=== PATIENT | female | born 1950 | race Caucasian/White ===

== ENCOUNTER → 2019-12-18 | Outpatient (CLI) | payer MEDICARE | LOC: LABNPT 08:52 | PROVIDERS: ATTEND Physician Assistant | DX: Z20.828 Contact with and (suspected) exposure to other viral communicable diseases (principal) | CPT/HCPCS: 87635 ==

== ENCOUNTER → 2020-01-14 | Outpatient (CLI) | payer MEDICARE | LOC: LABNPT 08:24 | DX: Z20.828 Contact with and (suspected) exposure to other viral communicable diseases (principal) | CPT/HCPCS: 87635 ==

== ENCOUNTER → 2020-02-12 | Outpatient (CLI) | payer MEDICARE | LOC: LABNPT 05:20 | PROVIDERS: ATTEND Physician Assistant | DX: U07.1 COVID-19 (principal) | CPT/HCPCS: 87635 ==

== ENCOUNTER → 2020-03-11 | Outpatient (CLI) | payer MEDICARE | LOC: LABNPT 08:59 | PROVIDERS: ATTEND Internal Medicine Hospice and Palliative Medicine | DX: Z20.822 Contact with and (suspected) exposure to COVID-19 (principal) | CPT/HCPCS: 87635 ==

== ENCOUNTER 2022-01-03 13:14 | Inpatient (IN) | payer MEDICARE ==
[~2022-01-03] VITALS: Ht 165.1 cm; Wt 55.0 kg
--- NOTE | 2022-01-03 13:25 | ED Cardiac General ---
History of Present Illness General Chief Complaint: Chest Pain Stated Complaint: SOA Source: patient, EMS Exam Limitations: no limitations History of Present Illness Date Seen by Provider: Jan 03, 2022 Time Seen by Provider: 13:18 Initial Comments 71-year-old female with past medical history of COPD on baseline 2 and half liters oxygen as well as metastatic kidney cancer with mets to the lungs and bones coming in via EMS due to chest pain and shortness of breath. She has been short of breath for the several weeks and continues to get worse. Started having chest tightness last night worsening today. Has had a productive cough. Denies any fever that she knows of, nausea, vomiting, diarrhea, focal weakness or numbness, rash, or any other concerns. Allergies and Home Medications Allergies Coded Allergies: No Known Drug Allergies (Unverified , 01/03/22) Patient Home Medication List Home Medication List Reviewed: Yes Review of Systems Review of Systems Constitutional: No fever EENTM: No Blurred Vision Respiratory: Cough, Shortness of Air Cardiovascular: Chest Pain Gastrointestinal: Denies Abdominal Pain Genitourinary: No Symptoms Reported Musculoskeletal: no symptoms reported Skin: no symptoms reported Psychiatric/Neurological: No Symptoms Reported Endocrine: No Symptoms Reported Hematologic/Lymphatic: No Symptoms Reported All Other Systems Reviewed Negative Unless Noted: Yes Past Utrxscb-Rligar-Gmdzxu Hx Patient Social History Tobacco Use?: No Smoking Status: Former Smoker Past Medical History Surgeries: Yes (nephrectomy) Physical Exam Vital Signs Vital Signs - First Documented 01/03/22 13:16 Temp 36.1 Pulse 101 B/P (MAP) 156/97 (116) Pulse Ox 99 O2 Delivery Nasal Cannula O2 Flow Rate 2.00 Capillary Refill : Height, Weight, BMI Height: '" Weight: lbs. oz. kg; BMI Method: General Appearance: Anxious, Chronically ill HEENT: PERRL/EOMI, Normal ENT Inspection, Pharynx Normal Neck: Full Range of Motion, Normal Inspection, Non Tender, Supple Respiratory: Chest Non Tender, Crackles, Wheezing Cardiovascular: Normal Peripheral Pulses, Tachycardia Gastrointestinal: Normal Bowel Sounds, Non Tender, Soft; No Distended, No Guarding Extremity: Normal Capillary Refill, Normal Inspection, Normal Range of Motion, Non Tender, No Calf Tenderness, Other (2+ lower extremity edema) Neurologic/Psychiatric: Alert, Oriented x3, No Motor/Sensory Deficits, Normal Mood/Affect Skin: Normal Color, Warm/Dry Lymphatic: No Adenopathy Progress/Results/Core Measures Results/Orders Lab Results Laboratory Tests Test 01/03/22 13:29 01/03/22 14:20 Range/Units White Blood Count 7.3 4.3-11.0 10^3/uL Red Blood Count 2.82 L 3.80-5.11 10^6/uL Hemoglobin 8.2 L 11.5-16.0 g/dL Hematocrit 25 L 35-52 % Mean Corpuscular Volume 89 80-99 fL Mean Corpuscular Hemoglobin 29 25-34 pg Mean Corpuscular Hemoglobin Concent 33 32-36 g/dL Red Cell Distribution Width 14.0 10.0-14.5 % Platelet Count 487 H 130-400 10^3/uL Mean Platelet Volume 8.4 L 9.0-12.2 fL Immature Granulocyte % (Auto) 1 % Neutrophils (%) (Auto) 76 H 42-75 % Lymphocytes (%) (Auto) 9 L 12-44 % Monocytes (%) (Auto) 13 H 0-12 % Eosinophils (%) (Auto) 1 0-10 % Basophils (%) (Auto) 0 0-10 % Neutrophils # (Auto) 5.5 1.8-7.8 10^3/uL Lymphocytes # (Auto) 0.7 L 1.0-4.0 10^3/uL Monocytes # (Auto) 1.0 0.0-1.0 10^3/uL Eosinophils # (Auto) 0.1 0.0-0.3 10^3/uL Basophils # (Auto) 0.0 0.0-0.1 10^3/uL Immature Granulocyte # (Auto) 0.1 0.0-0.1 10^3/uL Prothrombin Time 12.7 12.2-14.7 SEC INR Comment 0.9 0.8-1.4 Activated Partial Thromboplast Time 31 24-35 SEC Sodium Level 120 *L 135-145 MMOL/L Potassium Level 5.4 H 3.6-5.0 MMOL/L Chloride Level 88 L 98-107 MMOL/L Carbon Dioxide Level 24 21-32 MMOL/L Anion Gap 8 5-14 MMOL/L Blood Urea Nitrogen 17 7-18 MG/DL Creatinine 0.95 0.60-1.30 MG/DL Estimat Glomerular Filtration Rate 64 BUN/Creatinine Ratio 18 Glucose Level 99 70-105 MG/DL Calcium Level 8.8 8.5-10.1 MG/DL Corrected Calcium 9.0 8.5-10.1 MG/DL Magnesium Level 2.0 1.6-2.4 MG/DL Total Bilirubin 0.3 0.1-1.0 MG/DL Aspartate Amino Transf (AST/SGOT) 32 5-34 U/L Alanine Aminotransferase (ALT/SGPT) 31 0-55 U/L Alkaline Phosphatase 66 40-136 U/L Troponin I < 0.028 <0.028 NG/ML B-Type Natriuretic Peptide 30.1 <100.0 PG/ML Total Protein 7.0 6.4-8.2 GM/DL Albumin 3.7 3.2-4.5 GM/DL Lipase 47 8-78 U/L Influenza Type A (RT-PCR) Not Detected Not Detecte Influenza Type B (RT-PCR) Not Detected Not Detecte SARS-CoV-2 RNA (RT-PCR) Detected H Not Detecte Urine Color YELLOW Urine Clarity CLEAR Urine pH 6.0 5-9 Urine Specific [place] 1.015 L 1.016-1.022 Urine Protein NEGATIVE NEGATIVE Urine Glucose (UA) NEGATIVE NEGATIVE Urine Ketones NEGATIVE NEGATIVE Urine Nitrite NEGATIVE NEGATIVE Urine Bilirubin NEGATIVE NEGATIVE Urine Urobilinogen 0.2 < = 1.0 MG/DL Urine Leukocyte Esterase NEGATIVE NEGATIVE Urine RBC (Auto) TRACE-I H NEGATIVE Urine RBC 2-5 H /HPF Urine WBC NONE /HPF Urine Squamous Epithelial Cells NONE /HPF Urine Crystals NONE /LPF Urine Bacteria NEGATIVE /HPF Urine Casts NONE /LPF Urine Mucus NEGATIVE /LPF Urine Culture Indicated NO My Orders Orders - MARIXA MORALES MD Ekg Tracing (01/03/22 13:16) Cbc With Automated Diff (01/03/22 13:26) Magnesium (01/03/22 13:26) Chest 1 View, Ap/Pa Only (01/03/22 13:26) Ekg Tracing (01/03/22 13:26) Comprehensive Metabolic Panel (01/03/22 13:26) Protime With Inr (01/03/22 13:26) Partial Thromboplastin Time (01/03/22 13:26) O2 (01/03/22 13:26) Monitor-Rhythm Ecg Trace Only (01/03/22 13:26) Ed Iv/Invasive Line Start (01/03/22 13:26) Lipase (01/03/22 13:26) Bnp Gray (01/03/22 13:26) Troponin I Gray (01/03/22 13:26) Aspirin Chewable Tablet (Baby Aspirin Ch (01/03/22 13:30) Albuterol Inhaler (Albuterol) (01/03/22 13:26) Furosemide Injection (Lasix Injection) (01/03/22 13:30) Hydrocodone/Apap 5/325 Tablet (Lortab 5 (01/03/22 14:00) Ua Culture If Indicated (01/03/22 14:09) Influenza A And B By Pcr (01/03/22 14:18) Covid 19 Inhouse Test (01/03/22 14:18) Ed Admission (Communication) (01/03/22 15:11) Medications Given in ED Current Medications Medications Dose Ordered Sig/Samantha Route Start Time Stop Time Status Last Admin Dose Admin Acetaminophen/ Hydrocodone Bitart 1 ea ONCE ONCE PO 01/03/22 14:00 01/03/22 14:01 DC 01/03/22 14:25 1 EA Aspirin 324 mg ONCE ONCE PO 01/03/22 13:30 01/03/22 13:31 DC 01/03/22 13:36 324 MG Furosemide 40 mg ONCE ONCE IVP 01/03/22 13:30 01/03/22 13:31 DC 01/03/22 13:36 40 MG Vital Signs/I&O 01/03/22 01/03/22 01/03/22 01/03/22 13:16 13:48 13:48 14:25 Temp 36.1 36.1 Pulse 101 B/P (MAP) 156/97 (116) Pulse Ox 99 99 O2 Delivery Nasal Cannula Nasal Cannula Nasal Cannula O2 Flow Rate 2.00 2.00 2.00 2.00 Progress Progress Note : Progress Note 71yoF with above history coming in due to SOB. Her oxygen saturation in the low 90s on her baseline oxygen at rest, goes down into the 80s with any type of ambulation and needs to be turned up. Heart rate in the low 100s, blood pressure okay. She looks volume up on exam with new lower extremity edema and crackles. Give her IV Lasix to help with this. COVID test positive, sodium low at 120 with unknown baseline, potassium slightly elevated with normal creatinine and she is urinating. I discussed with the patient at length going home on hospice given her metastatic disease. She is not ready to make this decision at this time. I discussed the case with Dr. Barbour who will admit the patient to the ICU under inpatient status. Discussed the case with the ICU doctor as well. Had a conversation with the patient afterwards, and she states she does not want to be DNR at this time, and would want everything to be done. Initial ECG Impression Date: Jan 03, 2022 Initial ECG Impression Time: 13:27 Initial ECG Rate: 94 Initial ECG Rhythm: Normal Sinus Comment Narrow QRS, normal axis, some artifact but accounting for that no significant ST changes or T wave abnormalities Diagnostic Imaging Diagonstic Imaging: Xray Plain Films/CT/US/NM/MRI: chest Comments [facility] Caller [place], [place] NAME: DAMIAN RIVERA [facility] REC#: [id number] PT STATUS: REG ER : 1950 PHYSICIAN: MARIXA MORALES MD ADMIT DATE: 01/03/22/ER Draft Date of Exam:01/03/22 CHEST 1 VIEW, AP/PA ONLY EXAMINATION: Chest, one view. HISTORY: Chest pain. COMPARISON: None available. FINDINGS: Heart size and pulmonary vasculature are normal. Patchy opacities are present within the left upper lobe and bilateral lung bases. There may be calcified perihilar and mediastinal lymph nodes present. A port catheter is present. The osseous structures are intact. IMPRESSION: 1. Nodular opacities within the lungs, which could relate to patient's reported history of lung metastases. No other acute abnormality is seen within the chest. Dictated on workstation # [id number] Dict: 01/03/22 1403 Trans: 01/03/22 1409 [id number] Interpreted by: CARLA LY DO Electronically signed by: Departure Impression Primary Impression: Acute and chronic respiratory failure Additional Impressions: Hyponatremia COVID-19 Disposition: 09 ADMITTED INPATIENT Condition: Stable Admissions Decision to Admit Reason: Admit from ER (General) Decision to Admit/Date: Jan 03, 2022 Time/Decision to Admit Time: 15:05 MARIXA MORALES MD Jan 03, 2022 13:25
[2022-01-03] MEDS ORDERED: RT-ALBUTEROL HFA 8.5 GM INHALER IH STA (13:26)
[2022-01-03] MEDS ORDERED: FUROSEMIDE 40 MG/4 ML INJ (LASIX) IVP ONE (13:30)
[2022-01-03] MEDS ORDERED: ASPIRIN 81 MG CHEW (CHILDREN'S ASA) PO ONE (13:30)
[2022-01-03 13:43] LABS: BASOPHILS % (AUTO) 0 % (0-10); EOSINOPHILS # (AUTO) 0.1 10^3/uL (0.0-0.3); EOSINOPHILS % (AUTO) 1 % (0-10); HEMATOCRIT 25 % (35-52); HEMOGLOBIN 8.2 g/dL (11.5-16.0); LYMPHOCYTES # (AUTO) 0.7 10^3/uL (1.0-4.0); LYMPHOCYTES % (AUTO) 9 % (12-44); MEAN CORPUSCULAR HEMOGLOBIN 29 pg (25-34); MEAN CORPUSCULAR HGB CONC 33 g/dL (32-36); MEAN CORPUSCULAR VOLUME 89 fL (80-99); MEAN PLATELET VOLUME 8.4 fL (9.0-12.2); MONOCYTES % (AUTO) 13 % (0-12); NEUTROPHILS # (AUTO) 5.5 10^3/uL (1.8-7.8); NEUTROPHILS % (AUTO) 76 % (42-75); PLATELET COUNT 487 10^3/uL (130-400); WHITE BLOOD COUNT 7.3 10^3/uL (4.3-11.0)
[2022-01-03 13:59] LABS: ALBUMIN 3.7 GM/DL (3.2-4.5); POTASSIUM 5.4 MMOL/L (3.6-5.0)
[2022-01-03 14:00] LABS: CALCIUM 8.8 MG/DL (8.5-10.1); INR 0.9 (0.8-1.4); PROTHROMBIN TIME PATIENT 12.7 SEC (12.2-14.7)
[2022-01-03] MEDS ORDERED: HYDROcodone/APAP 5 MG/325 MG (LORTAB) TAB PO ONE (14:00)
[2022-01-03 14:03] LABS: BILIRUBIN,TOTAL 0.3 MG/DL (0.1-1.0)
[2022-01-03 14:05] LABS: CREATININE SERUM 0.95 MG/DL (0.60-1.30)
--- NOTE | 2022-01-03 14:09 | Diagnostic Imaging Report ---
EXAMINATION: Chest, one view. HISTORY: Chest pain. COMPARISON: None available. FINDINGS: Heart size and pulmonary vasculature are normal. Patchy opacities are present within the left upper lobe and bilateral lung bases. There may be calcified perihilar and mediastinal lymph nodes present. A port catheter is present. The osseous structures are intact. IMPRESSION: 1. Nodular opacities within the lungs, which could relate to patient's reported history of lung metastases. No other acute abnormality is seen within the chest. Dictated by: Dictated on workstation # [id number]
[2022-01-03 14:36] LABS: BILIRUBIN,URINE NEGATIVE (NEGATIVE); CLARITY,URINE CLEAR; COLOR,URINE YELLOW; GLUCOSE, URINE (UA) NEGATIVE (NEGATIVE); KETONES,URINE NEGATIVE (NEGATIVE); LEUKOCYTE ESTERASE ,URINE NEGATIVE (NEGATIVE); NITRITE,URINE NEGATIVE (NEGATIVE); PROTEIN,URINE NEGATIVE (NEGATIVE)
[2022-01-03 14:42] LABS: BACTERIA,URINE NEGATIVE /HPF
[2022-01-03] MEDS ORDERED: ACETAMINOPHEN 325 MG TABLET PO PRN (15:45)
[2022-01-03] MEDS ORDERED: ONDANSETRON 4 MG/2 ML (SDV) Z0FRAN IV PRN (15:45)
[2022-01-03] MEDS ORDERED: polyethylene glycoL POWDER 17 GM (MIRALAX) PACK PO PRN (15:45)
[2022-01-03] MEDS ORDERED: LACTULOSE SYRUP 10GM/15ML (ENULOSE) 30ML UDC PO PRN (15:45)
[2022-01-03] MEDS ORDERED: MILK OF MAGNESIA 400 MG/5 ML 30 ML UDC PO PRN (15:45)
[2022-01-03] MEDS ORDERED: diphenhydrAMINE 25 MG TAB (BENADRYL) PO PRN (15:45)
[2022-01-03] MEDS ORDERED: diphenhydrAMINE 50 MG/ML INJ (BENADRYL) IVP PRN (15:45)
[2022-01-03] MEDS ORDERED: ANTACID SUSP 30 ML UDC (MYLANTA) PO PRN (15:45)
[2022-01-03] MEDS ORDERED: ENOXAPARIN 40 MG/0.4 ML (LOVENOX) SYR SC SCH (15:45)
[2022-01-03] MEDS ORDERED: BISACODYL 10 MG SUPP (DULCOLAX) PR PRN (15:45)
[2022-01-03] MEDS ORDERED: ONDANSETRON 4 MG (ZOFRAN) ORAL DISSOLVE TAB PO PRN (15:45)
[2022-01-03] MEDS ORDERED: CALCIUM CARBONATE 500 MG (TUMS) TAB.CHEW PO PRN (15:45)
[2022-01-03 15:52] VITALS: BP 156/97
[2022-01-03] MEDS ORDERED: ENOXAPARIN INJECTION 30 MG/0.3 ML SYR SC SCH (16:30)
--- NOTE | 2022-01-03 17:06 | Tele-ICU Consult ---
History of Present Illness History of Present Illness Date Seen by Provider: Jan 03, 2022 Time Seen by Provider: 17:06 Date of Admission (Tele-ICU Physician , consultation as per request of PCP Service provided via interactive audio and video telecommunications E-CARE system to a patient admitted to ICU bed in [facility]. Available chart/ vitals / labs / Images reviewed H&P is from ER notes Patient's information available about PMH, Shx, Fhx allergy reviewed inEMR. ROS as per chart and RN report Now in ICU, hemodynamically stable Video assessment done using teleICU camera, rest of exam as per RN Discussed with RN. Consultants: Hospital course: (01/03) 71F Admitted with Acute on Chronic Resp failure and Covid. A/P Hyponatreemia with Na 120 on admission 01/03 ( baseline unknown _ , no confusion , no seizures - w/up ordered - received lasix in ER x1, UO - recheck NA q 4 h , goal NA is 128 by noon tomorrow Covid + -decadrone iv - check ddime ( increased risk with covid and CA) AECOPD - steroids IV - nebs Acute hypoxic resp failure - due to AECOPD and + Covid chronic resp failure, hypoxic - on 2 L o2 [employer] Hyperkalemia. mild - received Lasix , UO un measured - follow metastatic kidney cancer -mets to the lungs and bones as per ER report - s/p right nephrectomy Anemia - Hb 8.2 , ? chronic - vitals stable , follow tomorrow Lines : port catheter , (Central Line Necessity Reviewed) Pineda: OG: Nutrition: Analgesia: Anxiety/ delirium VTE Prophylaxis: lovenox Stress Ulcer Prophylaxis: na Plans in collaboration with bedside consultants and IM MDs. Discussed with RN to reach out if any questions or concerns A total of 33 minutes of critical care time was devoted to this patient today, required to treat and/or prevent further deterioration of critical care condition ( as above ) . I am remotely monitoring this patient from another state. I am unable to do the bedside exam, and history/physical and pertinent information is taken from other notes in the computer and bedside staff. . Allergies and Home Medications Allergies Coded Allergies: No Known Drug Allergies (Unverified , 01/03/22) Past Medical/Social/Family Hx Patient Social History Tobacco Use?: No Smoking Status: Former Smoker Smokeless Tobacco Frequency: Never a User Use of E-Cig and/or Vaping dev: No Substance use?: No Alcohol Use?: No Pt stated abuse/neglect: No Immunizations Up To Date Influenza Vaccine Up-to-Date: Yes; Up-to-Date Second COVID19 Vaccination Dorian: YES Current Status Advance Directives: No Communicates: Verbally Primary Language: Belarusian Preferred Spoken Language: Belarusian Is interpretation needed?: No Implanted or Applied Medical D: Port-a-cath Review of Systems Constitutional: see HPI Focused Exam Height, Weight, BMI Height: '" Weight: lbs. oz. kg; 19.33 BMI Method: Exam Exam Patient acknowledged, consented, and participated in this virtual visit which was conducted using real time audio/video Vital Signs Date Time Temp Pulse Resp B/P (MAP) Pulse Ox O2 Delivery O2 Flow Rate FiO2 01/03/22 15:52 36.1 101 99 28 01/03/22 15:35 36.0 91 20 154/88 99 Nasal Cannula 2.00 01/03/22 14:25 36.1 01/03/22 13:48 99 Nasal Cannula 2.00 01/03/22 13:48 Nasal Cannula 2.00 2.00 01/03/22 13:16 36.1 101 156/97 (116) 99 Nasal Cannula 2.00 Height & Weight Height: '" Weight: lbs. oz. kg; 19.33 BMI Method: General Appearance: No Apparent Distress, Anxious, Chronically ill HEENT: PERRL/EOMI, Normal ENT Inspection, Pharynx Normal Neck: Full Range of Motion, Normal Inspection, Non Tender, Supple Respiratory: Chest Non Tender, Crackles, Wheezing Cardiovascular: Normal Peripheral Pulses, Tachycardia Capillary Refill: Less Than 3 Seconds Extremity: Normal Capillary Refill, Normal Inspection, Normal Range of Motion, Non Tender, No Calf Tenderness, Other (2+ lower extremity edema) Neurologic/Psychiatric: Alert, Oriented x3, No Motor/Sensory Deficits, Normal Mood/Affect Skin: Normal Color, Warm/Dry Lymphatic: No Adenopathy Results Lab Laboratory Tests 01/03/22 13:29 Assessment/Plan Assessment/Plan 1 NEELA VEE MD Jan 03, 2022 17:06
[2022-01-03] MEDS ORDERED: TRM50T PO (18:41)
[2022-01-03] MEDS ORDERED: PROC10TA10 PO (18:41)
[2022-01-03] MEDS ORDERED: DOCU-143 PO (18:41)
[2022-01-03] MEDS ORDERED: FEXO180T84 PO (18:41)
[2022-01-03] MEDS ORDERED: BUDE10.7 IH (18:41)
[2022-01-03] MEDS ORDERED: LISI10TA25 PO (18:41)
[2022-01-03] MEDS ORDERED: LEVO-130 PO (18:41)
[2022-01-03] MEDS ORDERED: VITA1TAB17 PO (18:41)
[2022-01-03] MEDS ORDERED: LOPE2TAB34 PO (18:41)
[2022-01-03] MEDS ORDERED: ROFL500T PO (18:41)
[2022-01-03] MEDS ORDERED: ACHD5005 PO (18:41)
[2022-01-03] MEDS ORDERED: CALC0.253 PO (18:41)
[2022-01-03] MEDS ORDERED: MULT-610 PO (18:41)
[2022-01-03] MEDS ORDERED: ALBU8.5H6 (18:41)
[2022-01-03 19:18] LABS: CALCIUM 8.6 MG/DL (8.5-10.1); CREATININE SERUM 0.98 MG/DL (0.60-1.30); POTASSIUM 5.4 MMOL/L (3.6-5.0)
[2022-01-03] MEDS ORDERED: FUROSEMIDE 40 MG/4 ML INJ (LASIX) IVP NR (19:45)
--- NOTE | 2022-01-03 19:47 | History & Physical-Hospitalist ---
History of Present Illness HPI/Chief Complaint Tsering Tidwell is a 71 year old female with PMH HTN, COPD on home oxygen 2 L, metastatic renal cancer to the lung and bones s/p nephrectomy/radiation/chemotherapy, hypothyroidism, who presented with shortness of breath. She also reports having some nausea. She denies fevers and chills. She denies headaches and vision changes. She has had some chest tightness. She denies abdominal pain, vomiting, diarrhea. She has had bilateral lower extremity swelling and redness for the past several weeks. She was diagnosed with kidney cancer in 2019 and had a nephrectomy at that time followed by chemotherapy. She found out about a year later that it had spread to her lungs and bones. She reports several areas of bone metastatsis including skull, shoulder, and spine. She has undergone radiation. She has tried a couple immunotherapies but has been unable to tolerate them due to side effects. She is not currently on any jocelyn tment. She follows with Dr. Lazo at [place]. Source: patient Exam Limitations: no limitations Date Seen 01/03/22 Time Seen by a Provider: 19:00 Attending Physician PCP Admitting Physician: Ty Hansen MD Attending Physician: Ty Hansen MD Referring Physician Date of Admission Jan 03, 2022 at 15:12 Home Medications & Allergies Home Medications Reviewed patient Home Medication Reconciliation performed by pharmacy medication reconciliations shipping technician and/or nursing. Patients Allergies have been reviewed. Allergies Allergies Coded Allergies No Known Drug Allergies ([id number]/22/22) Past Cjgxzbr-Mddhgd-Ecrltn Hx Patient Social History Tobacco Use?: No Smoking Status: Former Smoker Smokeless Tobacco Frequency: Never a User Use of E-Cig and/or Vaping dev: No Substance use?: No Alcohol Use?: No Pt feels they are or have been: No Immunizations Up To Date Second COVID19 Vaccination Dorian: YES Current Status Advance Directives: No Communicates: Verbally Primary Language: Swedish Preferred Spoken Language: Swedish Is interpretation needed?: No Implanted or Applied Medical D: Port-a-cath Past Medical History Hypertension Hypothyroidsim Kidney (renal cancer metastatic to lung and bone) Did You Recieve Any Treatments: Yes What Type of Treatment Did You: Chemotherapy, Radiation, Surgical Intervention Family Medical History No Pertinent Family Hx Review of Systems Constitutional: malaise EENTM: no symptoms reported Respiratory: short of breath Cardiovascular: chest pain Gastrointestinal: nausea Genitourinary: no symptoms reported Physical Exam Physical Exam Vital Signs Vital Signs - First Documented 01/03/22 01/03/22 01/03/22 13:16 15:35 15:52 Temp 36.1 Pulse 101 Resp 20 B/P (MAP) 156/97 (116) Pulse Ox 99 O2 Delivery Nasal Cannula O2 Flow Rate 2.00 FiO2 28 Capillary Refill : Less Than 3 Seconds Height, Weight, BMI Height: '" Weight: lbs. oz. kg; 19.33 BMI Method: General Appearance: No Apparent Distress, Chronically ill, Thin HEENT: PERRL/EOMI, Pharynx Normal Neck: Normal Inspection, Supple Respiratory: No Respiratory Distress, Decreased Breath Sounds, Wheezing Cardiovascular: No Murmur, Tachycardia Gastrointestinal: Normal Bowel Sounds, Soft Extremity: No Non Tender; Inflammation, Pedal Edema, Swelling Neurologic/Psychiatric: Alert, No Motor/Sensory Deficits, Depressed Affect Skin: Warm/Dry, Erythema (bilateral legs) Results Results/Procedures Labs Laboratory Tests 01/03/22 13:29 01/03/22 18:50 Patient resulted labs reviewed. 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 Urine studies pending Appears hypervolemic on exam Given one dose of Lasix in ER Sodium improved from 120 to 121 Potassium remains elevated 5.4 Repeat Lasix Monitor sodium levels closely TeleICU consulted COVID-19 Chronic respiratory failure with hypoxia COPD Oxygen requirement at baseline Started on IV Decadron Metastatic renal cancer to the lungs and bones Poor prognosis Goals of care discussion Follows with Jorge Humphrey s/p nephrectomy, radiation, chemotherapy Not currently undergoing any treatment due to intolerable side effects Recommended DNR, will discuss with her Recommended considering hospice, consult palliative care Severe protein calorie malnutrition Remeron Ensure HTN Hypothyroidism COPD Continue home meds as able Hold Lisinopril MAT protocol DVT prophylaxis: Lovenox Critical Care Critically Ill Patient Diagnosis/Problems Diagnosis/Problems (1) Hyponatremia Status: Acute (2) Hyperkalemia Status: Acute (3) COVID-19 Status: Acute (4) Acute and chronic respiratory failure Status: Acute (5) COPD (chronic obstructive pulmonary disease) Status: Chronic (6) Malignant neoplasm of kidney metastatic to lung Status: Chronic (7) Malignant neoplasm of kidney metastatic to bone Status: Chronic (8) Status post nephrectomy Status: Chronic (9) Poor prognosis Status: Acute (10) Goals of care, counseling/discussion Status: Acute (11) Severe protein-calorie malnutrition Status: Acute (12) HTN (hypertension) Status: Chronic (13) Hypothyroidism Status: Chronic (14) Former smoker Status: Chronic TY HANSEN MD Jan 03, 2022 19:47
[2022-01-03] MEDS: HYDROcodone/APAP 5 MG/325 MG (LORTAB) TAB PO PRN (20:21)
[2022-01-03] MEDS: MIRTAZAPINE 15 MG (REMERON) TAB PO SCH (20:21)
[2022-01-03] MEDS: RT-ALBUTEROL HFA 8.5 GM INHALER IH SCH (20:41)
[2022-01-03] MEDS: SENNOSIDES 8.6 MG (SENOKOT) TAB PO SCH (20:42)
[2022-01-03] MEDS: DOCUSATE SODIUM 100 MG (COLACE) CAP PO SCH (20:42)
[2022-01-03] MEDS: MELATONIN 3 MG TABLET PO PRN (22:38)
[2022-01-03 23:20] LABS: CALCIUM 8.8 MG/DL (8.5-10.1)
[2022-01-03 23:24] LABS: CREATININE SERUM 1.09 MG/DL (0.60-1.30)
[2022-01-04] MEDS: NS IV 1000 ML 1,000 ML IV SCH ×2 (00:13→08:36)
[2022-01-04] MEDS: DOCUSATE SODIUM 100 MG (COLACE) CAP PO SCH ×2 (00:19→20:29)
[2022-01-04] MEDS: HYDROcodone/APAP 5 MG/325 MG (LORTAB) TAB PO PRN ×4 (00:22→18:47)
[2022-01-04] MEDS: RT-ALBUTEROL HFA 8.5 GM INHALER IH SCH ×4 (02:22→19:14)
[2022-01-04 02:42] LABS: CALCIUM 8.4 MG/DL (8.5-10.1); CREATININE SERUM 1.03 MG/DL (0.60-1.30)
[2022-01-04] MEDS: LEVOTHYROXINE 100 MCG (LEVOTHROID) TAB PO SCH (05:59)
[2022-01-04 06:09] LABS: BASOPHILS % (AUTO) 1 % (0-10); EOSINOPHILS % (AUTO) 1 % (0-10); LYMPHOCYTES # (AUTO) 0.6 10^3/uL (1.0-4.0); LYMPHOCYTES % (AUTO) 11 % (12-44); MEAN CORPUSCULAR HEMOGLOBIN 29 pg (25-34); MEAN CORPUSCULAR HGB CONC 33 g/dL (32-36); MEAN CORPUSCULAR VOLUME 88 fL (80-99); MEAN PLATELET VOLUME 8.3 fL (9.0-12.2); MONOCYTES # (AUTO) 0.8 10^3/uL (0.0-1.0); MONOCYTES % (AUTO) 14 % (0-12); NEUTROPHILS % (AUTO) 74 % (42-75); PLATELET COUNT 399 10^3/uL (130-400); WHITE BLOOD COUNT 5.5 10^3/uL (4.3-11.0)
[2022-01-04 06:12] LABS: HEMOGLOBIN 6.6 g/dL (11.5-16.0)
[2022-01-04 06:13] LABS: HEMATOCRIT 20 % (35-52)
[2022-01-04 06:22] LABS: POTASSIUM 5.1 MMOL/L (3.6-5.0)
[2022-01-04 06:23] LABS: CALCIUM 8.3 MG/DL (8.5-10.1)
[2022-01-04 06:27] LABS: CREATININE SERUM 1.03 MG/DL (0.60-1.30)
[2022-01-04 06:29] LABS: MAGNESIUM 1.7 MG/DL (1.6-2.4)
[2022-01-04] MEDS ORDERED: RT-ALBUTEROL/IPRATROPIUM 3 ML (DUONEB) VIAL ONE (06:36)
[2022-01-04] MEDS ORDERED: NS IV 500 ML 500 ML IV SCH ×2 (06:45)
[2022-01-04] MEDS ORDERED: NS IV 500 ML 500 ML IV PRN (07:00)
[2022-01-04] MEDS: SODIUM CHLORIDE 1 GM TABLET PO SCH ×2 (08:32→20:28)
[2022-01-04] MEDS: MAGNESIUM 1 GM/100 ML IVPB 100 ML IV SCH (08:35)
[2022-01-04] MEDS: SENNOSIDES 8.6 MG (SENOKOT) TAB PO SCH ×2 (09:00→20:28)
[2022-01-04] MEDS ORDERED: PANTOPRAZOLE 40 MG (PROTONIX) VIAL IV SCH (09:00)
[2022-01-04] MEDS ORDERED: amLODIPine 5 MG (NORVASC) TAB PO SCH (09:00)
[2022-01-04] MEDS ORDERED: CATHETER FLUSH 10 ML SYR IVP PRN (10:00)
--- NOTE | 2022-01-04 10:12 | Tele-ICU Progress Note ---
Subjective Date Seen by a Provider: Jan 04, 2022 Time Seen by a Provider: 10:08 Subjective/Events-last exam (Tele-ICU Physician , Progress Note ) Service provided via interactive audio and video telecommunications E-CARE system to a patient admitted to ICU bed in [facility]. Available chart/ vitals / labs / Images reviewed Video assessment done using teleICU camera, rest of exam as per RN Discussed with RN Events overnight : Afebrile hemodynamically stable Respiratory - I/O = Drips: Pressors- no Consultants: Hospital course: (01/03) 71F Admitted with Acute on Chronic Resp failure and Covid. A/P Hyponatremia with Na 120 on admission 01/03 ( baseline unknown _ , no confusion , no seizures - w/up ordered - received lasix in ER x1, on NS at 75cc/h now -NA 122 - recheck NA q 4 h , goal NA is 128 by noon today Covid + -decadrone iv - borderline ddimer - can be seen in [place] - will not persue w/up for DVT/PA - cont lovenoc proph AECOPD - steroids IV - nebs Acute hypoxic resp failure - due to AECOPD and + Covid chronic resp failure, hypoxic - on 2 L o2 [employer] Hyperkalemia. mild - received Lasix , now on fluid - follow metastatic kidney cancer -mets to the lungs and bones as per ER report - s/p right nephrectomy Anemia - Hb 8.2 , ? chronic - Hb 6.6 01/04 - no activ ebleeding , no vitals change , 1 units pRBC ordered for transfusion today - WILL HOLD LOVENOX IF HB DROPPING < OTHERWISE HIGH RISK FOR DVT- WILL CONT AND MONITOR Lines : port catheter , (Central Line Necessity Reviewed) Pineda: + OG: Nutrition: Analgesia: Anxiety/ delirium VTE Prophylaxis: lovenox- HIGH RISK Stress Ulcer Prophylaxis: na Plans in collaboration with bedside consultants and IM MDs. Discussed with RN to reach out if any questions or concerns A total of 31 minutes of critical care time was devoted to this patient today, required to treat and/or prevent further deterioration of critical care condition ( as above ) . I am remotely monitoring this patient from another state. I am unable to do the bedside exam, and history/physical and pertinent information is taken from other notes in the computer and bedside staff. . Sepsis Event Evaluation Height, Weight, BMI Height: '" Weight: lbs. oz. kg; 19.33 BMI Method: Exam Exam Patient acknowledged, consented, and participated in this virtual visit which was conducted using real time audio/video Vital Signs Date Time Temp Pulse Resp B/P (MAP) Pulse Ox O2 Delivery O2 Flow Rate FiO2 01/04/22 09:00 90 13 104/65 (78) 100 Nasal Cannula 2.00 01/04/22 08:00 80 19 76/50 (59) 100 Nasal Cannula 2.00 01/04/22 08:00 37.3 01/04/22 07:00 82 13 115/70 (85) 100 Nasal Cannula 2.00 01/04/22 07:00 80 01/04/22 06:00 100 18 113/73 (86) 99 Nasal Cannula 2.00 01/04/22 05:14 84 17 105/62 (76) 99 Nasal Cannula 2.00 01/04/22 04:00 89 17 97/62 (74) 99 Nasal Cannula 2.00 01/04/22 04:00 98 Nasal Cannula 4.00 01/04/22 03:00 88 15 99 Nasal Cannula 2.00 01/04/22 02:23 98 Nasal Cannula 4.00 01/04/22 02:00 82 18 89/58 (68) 100 Nasal Cannula 2.00 01/04/22 01:00 80 01/04/22 00:44 36.1 01/04/22 00:00 97 Nasal Cannula 2.00 01/04/22 00:00 80 11 92/60 (71) 100 Nasal Cannula 2.00 01/03/22 23:00 106 28 105/65 (78) 94 Nasal Cannula 2.00 01/03/22 22:00 95 15 91/55 (67) 94 Nasal Cannula 2.00 01/03/22 21:00 112 15 127/83 (98) 95 Nasal Cannula 2.00 01/03/22 20:00 96 Nasal Cannula 2.00 01/03/22 20:00 96 12 98/68 (78) 98 Nasal Cannula 2.00 01/03/22 19:00 109 01/03/22 19:00 109 32 121/82 (95) 92 Nasal Cannula 2.00 01/03/22 16:51 87 01/03/22 16:15 30 127/89 (102) 98 Nasal Cannula 2.00 01/03/22 16:00 94 Nasal Cannula 2.00 01/03/22 16:00 94 Nasal Cannula 2.00 01/03/22 16:00 94 Nasal Cannula 2.00 01/03/22 15:52 36.1 101 99 28 01/03/22 15:45 163/88 (113) 01/03/22 15:35 36.0 91 20 154/88 99 Nasal Cannula 2.00 01/03/22 14:25 36.1 01/03/22 13:48 99 Nasal Cannula 2.00 01/03/22 13:48 Nasal Cannula 2.00 2.00 01/03/22 13:16 36.1 101 156/97 (116) 99 Nasal Cannula 2.00 I & O 01/04/22 07:00 Intake Total 620 ml Output Total 1910 ml Balance -1290 ml Height & Weight Height: '" Weight: lbs. oz. kg; 19.33 BMI Method: General Appearance: No Apparent Distress, Chronically ill, Thin HEENT: PERRL/EOMI, Pharynx Normal Neck: Normal Inspection, Supple Respiratory: No Respiratory Distress, Decreased Breath Sounds, Wheezing Cardiovascular: No Murmur, Tachycardia Capillary Refill: Less Than 3 Seconds Extremity: No Non Tender; Inflammation, Pedal Edema, Swelling Neurologic/Psychiatric: Alert, No Motor/Sensory Deficits, Depressed Affect Skin: Warm/Dry, Erythema (bilateral legs) Lymphatic: No Adenopathy Results Lab Laboratory Tests 01/03/22 13:29 01/03/22 18:50 01/03/22 22:40 01/04/22 02:15 01/04/22 06:02 Assessment/Plan Assessment/Plan 1 NEELA VEE MD Jan 04, 2022 10:12
[2022-01-04 11:33] VITALS: BP 99/57
[2022-01-04 11:50] VITALS: BP 97/60
[2022-01-04 14:30] VITALS: BP 155/91
[2022-01-04] MEDS ORDERED: PEDI18TA7 PO (15:01)
[2022-01-04] MEDS ORDERED: ACET500C41 PO (15:01)
[2022-01-04 17:04] LABS: BASOPHILS % (AUTO) 0 % (0-10); EOSINOPHILS % (AUTO) 0 % (0-10); HEMATOCRIT 29 % (35-52); HEMOGLOBIN 9.5 g/dL (11.5-16.0); LYMPHOCYTES # (AUTO) 0.1 10^3/uL (1.0-4.0); LYMPHOCYTES % (AUTO) 4 % (12-44); MEAN CORPUSCULAR HEMOGLOBIN 29 pg (25-34); MEAN CORPUSCULAR HGB CONC 33 g/dL (32-36); MEAN CORPUSCULAR VOLUME 88 fL (80-99); MEAN PLATELET VOLUME 8.6 fL (9.0-12.2); MONOCYTES # (AUTO) 0.2 10^3/uL (0.0-1.0); MONOCYTES % (AUTO) 5 % (0-12); NEUTROPHILS # (AUTO) 3.6 10^3/uL (1.8-7.8); NEUTROPHILS % (AUTO) 90 % (42-75); PLATELET COUNT 431 10^3/uL (130-400)
[2022-01-04 17:11] LABS: POTASSIUM 5.9 MMOL/L (3.6-5.0)
[2022-01-04 17:12] LABS: CALCIUM 8.8 MG/DL (8.5-10.1)
[2022-01-04 17:16] LABS: CREATININE SERUM 1.02 MG/DL (0.60-1.30)
[2022-01-04 17:51] LABS: HYPOCHROMASIA MODERATE; LYMPHOCYTES % (MANUAL) 3 %; MONOCYTES % (MANUAL) 3 %; NEUTROPHILS % (MANUAL) 94 %
--- NOTE | 2022-01-04 17:59 | Progress Note - Hospitalist ---
Subjective HPI/CC On Admission Date Seen by Provider: Jan 04, 2022 Time Seen by Provider: 10:40 Tsering Tidwell is a 71 year old female with PMH HTN, COPD on home oxygen 2 L, metastatic renal cancer to the lung and bones s/p nephrecto my/radiation/chemotherapy, hypothyroidism, who presented with shortness of breath. She also reports having some nausea. She denies fevers and chills. She denies headaches and vision changes. She has had some chest tightness. She denies abdominal pain, vomiting, diarrhea. She has had bilateral lower extremity swelling and redness for the past several weeks. She was diagnosed with kidney cancer in 2019 and had a nephrectomy at that time followed by chemotherapy. She found out about a year later that it had spread to her lungs and bones. She reports several areas of bone metastatsis including skull, shoulder, and spine. She has undergone radiation. She has tried a couple immunotherapies but has been unable to tolerate them due to side effects. She is not currently on any treatment. She follows with Dr. Lazo at [place]. Subjective/Events-last exam She is feeling a little better. She is still weak. She denies shortness of breath. She denies pain. Objective Exam Vital Signs Vital Signs Date Time Temp Pulse Resp B/P (MAP) Pulse Ox O2 Delivery O2 Flow Rate FiO2 01/04/22 16:00 90 13 116/69 (85) 97 Nasal Cannula 2.00 01/04/22 16:00 37.2 01/03/22 15:52 28 Capillary Refill : Less Than 3 Seconds General Appearance: No Apparent Distress, Chronically ill Respiratory: No Respiratory Distress, Decreased Breath Sounds Cardiovascular: Regular Rate, Rhythm, No Murmur Gastrointestinal: Normal Bowel Sounds, Soft Extremity: Normal Inspection, Pedal Edema Neurologic/Psychiatric: Alert, Normal Mood/Affect Results/Procedures Lab Laboratory Tests 01/03/22 18:50 01/03/22 22:40 01/04/22 02:15 01/04/22 06:02 01/04/22 16:30 Patient resulted labs reviewed. Imaging: Reviewed Imaging Report Assessment/Plan Assessment and Plan Assess & Plan/Chief Complaint Metastatic renal cancer to the lungs and bones Poor prognosis Goals of care discussion Follows with [facility] s/p nephrectomy, radiation, chemotherapy Not currently undergoing any treatment due to intolerable side effects Patient discussed code status with her , wishes to transition to DNR Palliative care discussed hospice, patient would like to meet with them on Sunday Discussed comfort care, will stop lab draws, decrease vitals checks, focus on comfort Hyponatremia Hyperkalemia Likely SIADH Urine studies pending Sodium up to 124 Potassium remains elevated 5.9 Stop IV fluids Started on salt tabs COVID-19 Chronic respiratory failure with hypoxia COPD Oxygen requirement at baseline Transition to oral Prednisone Severe protein calorie malnutrition Remeron Ensure HTN Hypothyroidism COPD Continue home meds as able Hold Lisinopril with hyperkalemia MAT protocol DVT prophylaxis: Lovenox Diagnosis/Problems Diagnosis/Problems (1) Hyponatremia Status: Acute (2) Hyperkalemia Status: Acute (3) COVID-19 Status: Acute (4) Acute and chronic respiratory failure Status: Acute (5) COPD (chronic obstructive pulmonary disease) Status: Chronic (6) Malignant neoplasm of kidney metastatic to lung Status: Chronic (7) Malignant neoplasm of kidney metastatic to bone Status: Chronic (8) Status post nephrectomy Status: Chronic (9) Poor prognosis Status: Acute (10) Goals of care, counseling/discussion Status: Acute (11) Severe protein-calorie malnutrition Status: Acute (12) HTN (hypertension) Status: Chronic (13) Hypothyroidism Status: Chronic (14) Former smoker Status: Chronic TY HANSEN MD Jan 04, 2022 17:59
[2022-01-04] MEDS ORDERED: CALC GLUC 1 GM/100 ML IVPB 100 ML IV NR (18:00)
[2022-01-04] MEDS ORDERED: DEXTROSE 50% 50 ML (IMS) SYR IV NR (18:00)
[2022-01-04] MEDS ORDERED: SODIUM BICARB 8.4% 50 MEQ/50 ML (ABBOTT) SYR IV NR (18:00)
[2022-01-04] MEDS ORDERED: inSUlin (REGULAR) HUMAN 1 UNIT/0.01 ML (CHARGE PER UNIT) IV NR (18:00)
[2022-01-04] MEDS: ENOXAPARIN 40 MG/0.4 ML (LOVENOX) SYR SC SCH (18:46)
[2022-01-04] MEDS ORDERED: FUROSEMIDE 40 MG/4 ML INJ (LASIX) IVP NR (19:15)
[2022-01-04] MEDS: MIRTAZAPINE 15 MG (REMERON) TAB PO SCH (20:29)
[2022-01-05] MEDS: RT-ALBUTEROL HFA 8.5 GM INHALER IH SCH ×7 (02:09→21:36)
[2022-01-05] MEDS: HYDROcodone/APAP 5 MG/325 MG (LORTAB) TAB PO PRN ×3 (03:31→20:15)
[2022-01-05] MEDS: predniSONE 20 MG TAB PO SCH (05:36)
[2022-01-05] MEDS: LEVOTHYROXINE 100 MCG (LEVOTHROID) TAB PO SCH (05:37)
[2022-01-05] MEDS ORDERED: MAGNESIUM 1 GM/100 ML IVPB 100 ML IV SCH (06:00)
[2022-01-05] MEDS ORDERED: POTASSIUM CL 10MEQ/50ML IVPB 50 ML IV SCH (06:00)
[2022-01-05] MEDS ORDERED: KCL 20 MEQ TAB (K-DUR) PO SCH (06:00)
[2022-01-05 08:54] VITALS: BP 112/67
[2022-01-05] MEDS: SODIUM CHLORIDE 1 GM TABLET PO SCH ×2 (09:28→20:15)
[2022-01-05] MEDS: ALPRAZolam 0.5 MG (XANAX) TAB PO PRN (09:28)
[2022-01-05] MEDS: SENNOSIDES 8.6 MG (SENOKOT) TAB PO SCH ×2 (09:29→20:14)
[2022-01-05] MEDS: DOCUSATE SODIUM 100 MG (COLACE) CAP PO SCH ×2 (09:29→20:14)
[2022-01-05 10:02] LABS: CALCIUM 9.1 MG/DL (8.5-10.1)
[2022-01-05 10:07] LABS: CREATININE SERUM 1.08 MG/DL (0.60-1.30)
--- NOTE | 2022-01-05 17:24 | Progress Note - Hospitalist ---
Subjective HPI/CC On Admission Date Seen by Provider: Jan 05, 2022 Time Seen by Provider: 12:15 Tsering Tidwell is a 71 year old female with PMH HTN, COPD on home oxygen 2 L, metastatic renal cancer to the lung and bones s/p nephrecto my/radiation/chemotherapy, hypothyroidism, who presented with shortness of breath. She also reports having some nausea. She denies fevers and chills. She denies headaches and vision changes. She has had some chest tightness. She denies abdominal pain, vomiting, diarrhea. She has had bilateral lower extremity swelling and redness for the past several weeks. She was diagnosed with kidney cancer in 2019 and had a nephrectomy at that time followed by chemotherapy. She found out about a year later that it had spread to her lungs and bones. She reports several areas of bone metastatsis including skull, shoulder, and spine. She has undergone radiation. She has tried a couple immunotherapies but has been unable to tolerate them due to side effects. She is not currently on any treatment. She follows with Dr. Lazo at [facility]. Subjective/Events-last exam She is feeling a little better. She is eating lunch. She has no complaints. Objective Exam Vital Signs Vital Signs Date Time Temp Pulse Resp B/P (MAP) Pulse Ox O2 Delivery O2 Flow Rate FiO2 01/05/22 10:25 95 Nasal Cannula 2.00 01/05/22 08:54 37.0 85 20 112/67 (82) 01/03/22 15:52 28 Capillary Refill : Less Than 3 Seconds General Appearance: No Apparent Distress, Chronically ill, Thin Respiratory: No Respiratory Distress, Decreased Breath Sounds Cardiovascular: Regular Rate, Rhythm, No Murmur Gastrointestinal: Normal Bowel Sounds, Soft Extremity: Normal Inspection, No Pedal Edema Neurologic/Psychiatric: Alert, Normal Mood/Affect Results/Procedures Lab Laboratory Tests 01/05/22 09:41 Patient resulted labs reviewed. Imaging: Reviewed Imaging Report Assessment/Plan Assessment and Plan Assess & Plan/Chief Complaint Metastatic renal cancer to the lungs and bones Poor prognosis Goals of care discussion Follows with [facility] s/p nephrectomy, radiation, chemotherapy Not currently undergoing any treatment due to intolerable side effects Patient discussed code status with her , wishes to transition to DNR Palliative care discussed hospice, patient would like to meet with them on Sunday Planning for hospice informational tomorrow Hyponatremia Hyperkalemia, resolved Likely SIADH Urine studies pending Sodium up to 128 Potassium normalized Continue salt tabs COVID-19 Chronic respiratory failure with hypoxia COPD Oxygen requirement at baseline Continue oral Prednisone Severe protein calorie malnutrition Remeron Ensure HTN Hypothyroidism COPD Continue home meds as able Hold Lisinopril with hyperkalemia MAT protocol DVT prophylaxis: Lovenox Diagnosis/Problems Diagnosis/Problems (1) Hyponatremia Status: Acute (2) Hyperkalemia Status: Acute (3) COVID-19 Status: Acute (4) Acute and chronic respiratory failure Status: Acute (5) COPD (chronic obstructive pulmonary disease) Status: Chronic (6) Malignant neoplasm of kidney metastatic to lung Status: Chronic (7) Malignant neoplasm of kidney metastatic to bone Status: Chronic (8) Status post nephrectomy Status: Chronic (9) Poor prognosis Status: Acute (10) Goals of care, counseling/discussion Status: Acute (11) Severe protein-calorie malnutrition Status: Acute (12) HTN (hypertension) Status: Chronic (13) Hypothyroidism Status: Chronic (14) Former smoker Status: Chronic TY HANSEN MD Jan 05, 2022 17:24
[2022-01-05] MEDS: ENOXAPARIN 40 MG/0.4 ML (LOVENOX) SYR SC SCH (17:53)
[2022-01-05] MEDS: MIRTAZAPINE 15 MG (REMERON) TAB PO SCH (19:49)
[2022-01-05 21:07] VITALS: BP 116/53
[2022-01-06] MEDS: RT-ALBUTEROL HFA 8.5 GM INHALER IH SCH ×6 (02:44→22:43)
[2022-01-06] MEDS: HYDROcodone/APAP 5 MG/325 MG (LORTAB) TAB PO PRN ×5 (04:46→23:18)
[2022-01-06] MEDS: LEVOTHYROXINE 100 MCG (LEVOTHROID) TAB PO SCH (04:47)
[2022-01-06] MEDS: predniSONE 20 MG TAB PO SCH (04:47)
[2022-01-06] MEDS: DOCUSATE SODIUM 100 MG (COLACE) CAP PO SCH ×2 (08:10→19:42)
[2022-01-06] MEDS: SENNOSIDES 8.6 MG (SENOKOT) TAB PO SCH ×2 (08:10→19:42)
[2022-01-06] MEDS: SODIUM CHLORIDE 1 GM TABLET PO SCH ×2 (08:11→19:42)
[2022-01-06 11:07] VITALS: BP 156/85
--- NOTE | 2022-01-06 14:47 | Physical Therapy Evaluation ---
PT Evaluation-General Medical Diagnosis Admission Date Jan 03, 2022 at 15:12 Medical Diagnosis: hyponatremia Onset Date: Jan 03, 2022 Therapy Diagnosis Therapy Diagnosis: limited mobility Precautions Precautions/Isolations: Airborne Isolation, Contact Isolation, Droplet Isolation Weight Bear Status Right Lower Extremity: Right Weight Bearing/Tolerated Left Lower Extremity: Left Weight Bearing/Tolerated Referral Physician: Selene Barbour MD Reason for Referral: Evaluation/Treatment Medical History Pertinent Medical History: COPD, HTN Additional Medical History renal cancer with METS to lung and bone, hypothyroid Current History Positive COVID Reviewed History: Yes Social History Home: Single Level Current Living Status: Significant Other Entry Into Home: Stairs With Railing PT Steps Into Home: 3 is in poor health. She assists him with ADLs. Prior Prior Level of Function SCALE: Activities may be completed with or without assistive devices. 3-Ivoshoqcha-etzmwwz completes the activity by him/herself with no assistance from a helper. 5-Set-up or Clean-up Assistance-helper sets up or cleans up; patient completes activity. [place] assists only prior to or following the activity. 4-Supervision or Touching Assistance-helper provides verbal cues and/or touc javier/steadying and/or contact guard assistance as patient completes activity. Assistance may be provided throughout the activity or intermittently. 3-Partial/Moderate Assistance-helper does LESS THAN HALF the effort. [place] lifts, holds or supports trunk or limbs, but provides less than half the effort. 2-Substantial/Maximal Assistance-helper does MORE THAN HALF the effort. [place] lifts or holds trunk or limbs and provides more than half the effort. 3-Wwsiliccl-vopder does ALL the effort. Patient does none of the effort to complete the activity. Or, the assistance of 2 or more helpers is required for the patient to complete the activity. If activity was not attempted, code reason: 7-Patient Refused. 9-Not Applicable-not attempted and the patient did not perform the activity before the current illness, exacerbation or injury. 10-Not Attempted due to Environmental Limitations-(lack of equipment, weather restraints, etc.). 88-Not Attempted due to Medical Conditions or Safety Concerns. Bed Mobility: 6 Transfers (B,C,W/C): 6 Gait: 6 Stairs: 6 Indoor Mobility (Ambulation): Independent Stairs: Independent Prior Devices Use: None PT Evaluation-Current Subjective No pain. Only issue is dyspnea with any activity. Pain Numeric Pain Scale: 0-No Pain Pt/Family Goals Return home. Objective Patient Orientation: Person, Place, Time, Situation Attachments: Pineda Catheter, IV ROM/Strength ROM Upper Extremities WFL ROM Lower Extremities WFL Strength Upper Extremities (R) UE has diminished stength 3-/5 and sensation over the past month. (L) UE MMT 4+/5 Integumentary/Posture Bladder Incontinence: Pineda Cath Neuromuscular (Tone, Coordination, Reflexes) (R) UE impaired tone and function of the hand due to parasthesia. Sensory Vision: Wears Glasses Hearing: Functional Hand Dominance: Right Sensation Right Upper Extremit: Impaired Sensation Left Upper Extremity: Intact Sensation Up. Extremities (R) UE sensation has been diminished for the past month with pt noting decreasing sensation and strength. Sensation Right Lower Extremit: Intact Sensation Left Lower Extremity: Intact Transfers Roll Left to Right (QC): 5 Sit to Lying (QC): 5 Lying to Sitting/Side of Bed(Q: 5 Sit to Stand (QC): 5 Gait Does the Patient Walk?: Yes Mode of Locomotion: Walk Anticipated Mode of Locomotion: Walk Walk 10 feet (QC): 4 Distance: 16ft Gait Assistive Device: FWW Comments/Gait Description limited due to dyspnea with exertion. She had to return to bed and sate EOB for 10min trying to catch her breath. Pt returned to bed after sitting. Wheelchair Training Does the Pt Use a Wheelchair?: No Balance Sitting Static: Good Sitting Dynamic: Good Standing Static: Good Standing Dynamic: Good Assessment/Needs Pt is limited due to dyspnea secondary to COVID and lung METS. Rehab Potential: Fair PT Family Program Specialist Goals Family Program Specialist Goals PT Alf Goals Time Frame: Jan 20, 2022 Roll Left & Right (QC): 6 Sit to Lying (QC): 6 Lying-Sitting on Side/Bed(QC): 6 Sit to Stand (QC): 6 Chair/Qum-ka-Fpgfa Xfer(QC): 6 Toilet Transfer (QC): 6 Does the Patient Walk: Yes Walk 10 feet (QC): 6 Walk 50ft with 2 Turns (QC): 6 Walk 150 ft (QC): 6 4 Steps (QC): 6 PT Plan Problem List Problem List: Activity Tolerance, Functional Strength, Gait, Bed Mobility Treatment/Plan Treatment Plan: Continue Plan of Care Treatment Duration: Jan 20, 2022 Frequency: 6 times per week Estimated Hrs Per Day: .25 hour per day Patient and/or Family Agrees t: Yes Time Time In: 1410 Time Out: 1445 DATE: Jan 06, 2022 Total Billed Treatment Time: 35 Total Billed Treatment 1, [facility] 35 GREY ASENCIO PT Jan 06, 2022 14:47
[2022-01-06] MEDS: ENOXAPARIN 40 MG/0.4 ML (LOVENOX) SYR SC SCH (17:39)
[2022-01-06] MEDS ORDERED: NF-NACL1GT PO (19:10)
[2022-01-06] MEDS ORDERED: PRED10TA22 PO (19:10)
[2022-01-06] MEDS ORDERED: MIRT-47 PO (19:10)
--- NOTE | 2022-01-06 19:19 | Progress Note - Hospitalist ---
Subjective HPI/CC On Admission Date Seen by Provider: Jan 06, 2022 Time Seen by Provider: 12:40 Tsering Tidwell is a 71 year old female with PMH HTN, COPD on home oxygen 2 L, metastatic renal cancer to the lung and bones s/p nephrectomy/radiation/chemotherapy, hypothyroidism, who presented with shortness of breath. She also reports having some nausea. She denies fevers and chills. She denies headaches and vision changes. She has had some chest tightness. She denies abdominal pain, vomiting, diarrhea. She has had bilateral lower extremity swelling and redness for the past several weeks. She was diagnosed with kidney cancer in 2019 and had a nephrectomy at that time followed by chemotherapy. She found out about a year later that it had spread to her lungs and bones. She reports several areas of bone metastatsis including skull, shoulder, and spine. She has undergone radiation. She has tried a couple immunotherapies but has been unable to tolerate them due to side effects. She is not currently on any treatment. She follows with Dr. Lazo at [facility]. Subjective/Events-last exam She is feeling about the same. She is worried about going home stating "my is just going to put me to work". She wants to stay through the weekend. We discussed that she is medically stable and a prolonged hospitalization puts her at risk for other hospital-acquired illnesses. Objective Exam Vital Signs Vital Signs Date Time Temp Pulse Resp B/P (MAP) Pulse Ox O2 Delivery O2 Flow Rate FiO2 01/06/22 19:01 95 Nasal Cannula 3.00 01/06/22 11:07 36.6 92 18 156/85 (108) 01/03/22 15:52 28 Capillary Refill : Less Than 3 Seconds General Appearance: No Apparent Distress, Chronically ill, Thin Respiratory: Lungs Clear, No Respiratory Distress Cardiovascular: Regular Rate, Rhythm, No Murmur Gastrointestinal: Normal Bowel Sounds, Soft Extremity: Normal Inspection, Pedal Edema Neurologic/Psychiatric: Alert, Normal Mood/Affect Skin: Normal Color, Warm/Dry Results/Procedures Lab Patient resulted labs reviewed. Imaging: Reviewed Imaging Report Assessment/Plan Assessment and Plan Assess & Plan/Chief Complaint Metastatic renal cancer to the lungs and bones Poor prognosis Goals of care discussion Follows with [facility] s/p nephrectomy, radiation, chemotherapy Not currently undergoing any treatment due to intolerable side effects Palliative care consulted Planning for discharge on hospice tomorrow Hyponatremia Continue salt tabs COVID-19 Chronic respiratory failure with hypoxia COPD Oxygen requirement at baseline Continue oral Prednisone MAT protocol Severe protein calorie malnutrition Remeron Ensure HTN Hypothyroidism Continue home meds as able Hold Lisinopril with hyperkalemia DVT prophylaxis: Lovenox Hyperkalemia, resolved Diagnosis/Problems Diagnosis/Problems (1) Hyponatremia Status: Acute (2) Hyperkalemia Status: Acute (3) COVID-19 Status: Acute (4) Acute and chronic respiratory failure Status: Acute (5) COPD (chronic obstructive pulmonary disease) Status: Chronic (6) Malignant neoplasm of kidney metastatic to lung Status: Chronic (7) Malignant neoplasm of kidney metastatic to bone Status: Chronic (8) Status post nephrectomy Status: Chronic (9) Poor prognosis Status: Acute (10) Goals of care, counseling/discussion Status: Acute (11) Severe protein-calorie malnutrition Status: Acute (12) HTN (hypertension) Status: Chronic (13) Hypothyroidism Status: Chronic (14) Former smoker Status: Chronic TY HANSEN MD Jan 06, 2022 19:18
[2022-01-06] MEDS: MIRTAZAPINE 15 MG (REMERON) TAB PO SCH (19:44)
[2022-01-06 20:09] VITALS: BP 131/88
[2022-01-07] MEDS: RT-ALBUTEROL HFA 8.5 GM INHALER IH SCH ×6 (03:02→21:28)
[2022-01-07] MEDS: HYDROcodone/APAP 5 MG/325 MG (LORTAB) TAB PO PRN ×4 (03:28→19:32)
[2022-01-07] MEDS: predniSONE 20 MG TAB PO SCH (05:37)
[2022-01-07] MEDS: LEVOTHYROXINE 100 MCG (LEVOTHROID) TAB PO SCH (05:37)
[2022-01-07 08:07] VITALS: BP 143/78
[2022-01-07] MEDS: ALPRAZolam 0.5 MG (XANAX) TAB PO PRN ×2 (09:26→19:32)
[2022-01-07] MEDS: SODIUM CHLORIDE 1 GM TABLET PO SCH ×2 (09:26→19:33)
[2022-01-07] MEDS: DOCUSATE SODIUM 100 MG (COLACE) CAP PO SCH ×2 (09:27→19:32)
[2022-01-07] MEDS: SENNOSIDES 8.6 MG (SENOKOT) TAB PO SCH ×2 (09:27→19:32)
--- NOTE | 2022-01-07 13:10 | Progress Note - Hospitalist ---
Subjective HPI/CC On Admission Date Seen by Provider: Jan 07, 2022 Time Seen by Provider: 12:15 Tsering Tidwell is a 71 year old female with PMH HTN, COPD on home oxygen 2 L, metastatic renal cancer to the lung and bones s/p nephrectomy/radiation/chemotherapy, hypothyroidism, who presented with shortness of breath. She also reports having some nausea. She denies fevers and chills. She denies headaches and vision changes. She has had some chest tightness. She denies abdominal pain, vomiting, diarrhea. She has had bilateral lower extremity swelling and redness for the past several weeks. She was diagnosed with kidney cancer in 2019 and had a nephrectomy at that time followed by chemotherapy. She found out about a year later that it had spread to her lungs and bones. She reports several areas of bone metastatsis including skull, shoulder, and spine. She has undergone radiation. She has tried a couple immunotherapies but has been unable to tolerate them due to side effects. She is not currently on any treatment. She follows with Dr. Lazo at [facility]. Subjective/Events-last exam She is about the same. She is feeling tired today. She is unable to get a ride home. Objective Exam Vital Signs Vital Signs Date Time Temp Pulse Resp B/P (MAP) Pulse Ox O2 Delivery O2 Flow Rate FiO2 01/07/22 08:07 36.8 95 18 143/78 (99) 97 Nasal Cannula 3.00 01/03/22 15:52 28 Capillary Refill : Less Than 3 Seconds General Appearance: No Apparent Distress, Chronically ill, Thin Respiratory: No Respiratory Distress, Decreased Breath Sounds Cardiovascular: Regular Rate, Rhythm, No Murmur Gastrointestinal: Normal Bowel Sounds, Soft Extremity: Normal Inspection, Pedal Edema Neurologic/Psychiatric: Alert, Depressed Affect Skin: Normal Color, Warm/Dry Results/Procedures Lab Patient resulted labs reviewed. Imaging: Reviewed Imaging Report Assessment/Plan Assessment and Plan Assess & Plan/Chief Complaint Metastatic renal cancer to the lungs and bones Poor prognosis Goals of care discussion Follows with [facility] s/p nephrectomy, radiation, chemotherapy Not currently undergoing any treatment due to intolerable side effects Palliative care following Unable to obtain transportation home Plan for discharge home on hospice Sunday Hyponatremia Continue salt tabs COVID-19 Chronic respiratory failure with hypoxia COPD Oxygen requirement at baseline Continue oral Prednisone MAT protocol Severe protein calorie malnutrition Remeron Ensure HTN Hypothyroidism Continue home meds as able Hold Lisinopril with hyperkalemia DVT prophylaxis: Lovenox Hyperkalemia, resolved Diagnosis/Problems Diagnosis/Problems (1) Hyponatremia Status: Acute (2) Hyperkalemia Status: Acute (3) COVID-19 Status: Acute (4) Acute and chronic respiratory failure Status: Acute (5) COPD (chronic obstructive pulmonary disease) Status: Chronic (6) Malignant neoplasm of kidney metastatic to lung Status: Chronic (7) Malignant neoplasm of kidney metastatic to bone Status: Chronic (8) Status post nephrectomy Status: Chronic (9) Poor prognosis Status: Acute (10) Goals of care, counseling/discussion Status: Acute (11) Severe protein-calorie malnutrition Status: Acute (12) HTN (hypertension) Status: Chronic (13) Hypothyroidism Status: Chronic (14) Former smoker Status: Chronic TY HANSEN MD Jan 07, 2022 13:10
--- NOTE | 2022-01-07 13:29 | Physical Therapy Progress Note ---
Therapy Progress Note Pt is seen twice today (first at 1230 then 1315) both times pt advises eating now. Pt will be seen Sunday at next available tx. Refusal, no tx rendered JOHANA ROSALES DITCH DIGGER Jan 07, 2022 13:29
[2022-01-07] MEDS: ENOXAPARIN 40 MG/0.4 ML (LOVENOX) SYR SC SCH (19:32)
[2022-01-07] MEDS: MIRTAZAPINE 15 MG (REMERON) TAB PO SCH (19:33)
[2022-01-07 21:08] VITALS: BP 130/70
[2022-01-08] MEDS: HYDROcodone/APAP 5 MG/325 MG (LORTAB) TAB PO PRN ×4 (02:08→19:30)
[2022-01-08] MEDS: RT-ALBUTEROL HFA 8.5 GM INHALER IH SCH ×3 (03:18→22:33)
[2022-01-08] MEDS: ALPRAZolam 0.5 MG (XANAX) TAB PO PRN (05:29)
[2022-01-08] MEDS: predniSONE 20 MG TAB PO SCH (05:29)
[2022-01-08] MEDS: LEVOTHYROXINE 100 MCG (LEVOTHROID) TAB PO SCH (05:29)
[2022-01-08] MEDS: DOCUSATE SODIUM 100 MG (COLACE) CAP PO SCH ×2 (08:34→19:30)
[2022-01-08] MEDS: SODIUM CHLORIDE 1 GM TABLET PO SCH ×2 (08:34→19:30)
[2022-01-08] MEDS: SENNOSIDES 8.6 MG (SENOKOT) TAB PO SCH ×2 (08:34→19:30)
[2022-01-08 09:18] VITALS: BP 108/69
[2022-01-08 09:56] VITALS: BP 108/69
[2022-01-08] MEDS: RT-ALBUTEROL HFA 8.5 GM INHALER IH PRN (11:53)
[2022-01-08] MEDS ORDERED: ALPRAZolam 0.5 MG (XANAX) TAB PO ONE (12:00)
--- NOTE | 2022-01-08 18:06 | Progress Note - Hospitalist ---
Subjective HPI/CC On Admission Date Seen by Provider: Jan 08, 2022 Time Seen by Provider: 11:45 Tsering Tidwell is a 71 year old female with PMH HTN, COPD on home oxygen 2 L, metastatic renal cancer to the lung and bones s/p nephrectomy/radiation/chemotherapy, hypothyroidism, who presented with shortness of breath. She also reports having some nausea. She denies fevers and chills. She denies headaches and vision changes. She has had some chest tightness. She denies abdominal pain, vomiting, diarrhea. She has had bilateral lower extremity swelling and redness for the past several weeks. She was diagnosed with kidney cancer in 2019 and had a nephrectomy at that time followed by chemotherapy. She found out about a year later that it had spread to her lungs and bones. She reports several areas of bone metastatsis including skull, shoulder, and spine. She has undergone radiation. She has tried a couple immunotherapies but has been unable to tolerate them due to side effects. She is not currently on any treatment. She follows with Dr. Lazo at [facility]. Subjective/Events-last exam She is more short of breath today. She is about to get a breathing treatment. She appears anxious. Objective Exam Vital Signs Vital Signs Date Time Temp Pulse Resp B/P (MAP) Pulse Ox O2 Delivery O2 Flow Rate FiO2 01/08/22 11:54 96 Nasal Cannula 2.00 01/08/22 09:56 36.7 90 01/08/22 09:18 20 108/69 (82) 01/03/22 15:52 28 Capillary Refill : Less Than 3 Seconds General Appearance: No Apparent Distress, Anxious, Chronically ill, Thin Respiratory: No Respiratory Distress, Decreased Breath Sounds Cardiovascular: No Murmur, Tachycardia Gastrointestinal: Normal Bowel Sounds, Non Tender, Soft Extremity: Normal Inspection, No Pedal Edema Neurologic/Psychiatric: Alert, Motor Weakness Skin: Normal Color, Warm/Dry Results/Procedures Lab Patient resulted labs reviewed. Imaging: Reviewed Imaging Report Assessment/Plan Assessment and Plan Assess & Plan/Chief Complaint Metastatic renal cancer to the lungs and bones Poor prognosis Goals of care discussion Follows with Jorge Humphrey s/p nephrectomy, radiation, chemotherapy Not currently undergoing any treatment due to intolerable side effects Palliative care following Unable to obtain transportation home Plan for discharge home on hospice Sunday Hyponatremia Continue salt tabs COVID-19 Chronic respiratory failure with hypoxia COPD Oxygen requirement at baseline Continue oral Prednisone MAT protocol Anemia s/p 1 unit pRBC Hemoglobin improved Severe protein calorie malnutrition Remeron Ensure HTN Hypothyroidism Continue home meds as able Hold Lisinopril with hyperkalemia DVT prophylaxis: Lovenox Hyperkalemia, resolved Diagnosis/Problems Diagnosis/Problems (1) Hyponatremia Status: Acute (2) Hyperkalemia Status: Acute (3) COVID-19 Status: Acute (4) Acute and chronic respiratory failure Status: Acute (5) COPD (chronic obstructive pulmonary disease) Status: Chronic (6) Malignant neoplasm of kidney metastatic to lung Status: Chronic (7) Malignant neoplasm of kidney metastatic to bone Status: Chronic (8) Status post nephrectomy Status: Chronic (9) Poor prognosis Status: Acute (10) Goals of care, counseling/discussion Status: Acute (11) Severe protein-calorie malnutrition Status: Acute (12) HTN (hypertension) Status: Chronic (13) Hypothyroidism Status: Chronic (14) Former smoker Status: Chronic TY HANSEN MD Jan 08, 2022 18:06
[2022-01-08] MEDS: ENOXAPARIN 40 MG/0.4 ML (LOVENOX) SYR SC SCH (19:30)
[2022-01-08] MEDS: MIRTAZAPINE 15 MG (REMERON) TAB PO SCH (19:30)
[2022-01-08] MEDS: MELATONIN 3 MG TABLET PO PRN (19:30)
[2022-01-08 21:00] VITALS: BP 111/63
[2022-01-08] MEDS ORDERED: RT-ALBUTEROL HFA 8.5 GM INHALER IH SCH (21:00)
[2022-01-09] MEDS: HYDROcodone/APAP 5 MG/325 MG (LORTAB) TAB PO PRN ×5 (01:21→21:17)
[2022-01-09] MEDS: RT-ALBUTEROL HFA 8.5 GM INHALER IH SCH ×5 (02:00→18:32)
[2022-01-09] MEDS: predniSONE 20 MG TAB PO SCH (05:18)
[2022-01-09] MEDS: LEVOTHYROXINE 100 MCG (LEVOTHROID) TAB PO SCH (05:18)
[2022-01-09] MEDS: ALPRAZolam 0.5 MG (XANAX) TAB PO PRN (05:24)
[2022-01-09 08:00] VITALS: BP 108/65
[2022-01-09] MEDS: DOCUSATE SODIUM 100 MG (COLACE) CAP PO SCH ×2 (09:37→21:18)
[2022-01-09] MEDS: SODIUM CHLORIDE 1 GM TABLET PO SCH ×2 (09:37→21:18)
[2022-01-09] MEDS: SENNOSIDES 8.6 MG (SENOKOT) TAB PO SCH ×2 (09:37→21:18)
--- NOTE | 2022-01-09 09:52 | Discharge Inst-Simple/Standard ---
Discharge Inst-Standard Discharge Medications New, Converted or Re-Newed RX: Transmitted to Pharmacy Patient Instructions/Follow Up Plan of Care/Instructions/FU: Please continue to take your medications as written. Please follow up with your PCP to follow up this hospital stay. Activity as Tolerated: Yes Discharge Diet: No Restrictions Return to The Hospital For: Uncontrolled pain or shortness of breath, fever, weakness, if you feel you are getting worse. CLARISSA MCNEIL MD Jan 09, 2022 09:52
--- NOTE | 2022-01-09 09:53 | Discharge Summary ---
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 (7) Malignant neoplasm of kidney metastatic to bone Status: Chronic (8) Status post nephrectomy Status: Chronic (9) Poor prognosis Status: Acute (10) Goals of care, counseling/discussion Status: Acute (11) Severe protein-calorie malnutrition Status: Acute (12) HTN (hypertension) Status: Chronic (13) Hypothyroidism Status: Chronic (14) Former smoker Status: Chronic Discharge Summary Discharge Physical Exam Allergies: Coded Allergies: Penicillins (Verified Allergy, Unknown, Rash, 01/04/22) Vitals & I&Os Vital Signs Date Time Temp Pulse Resp B/P (MAP) Pulse Ox O2 Delivery O2 Flow Rate FiO2 01/09/22 10:05 95 Nasal Cannula 2.00 01/09/22 08:00 36.0 84 18 108/65 (79) 01/03/22 15:52 28 General Appearance: No Apparent Distress, Chronically ill, Thin Respiratory: No Respiratory Distress, Decreased Breath Sounds Cardiovascular: Regular Rate, Rhythm, No Murmur Neurologic/Psychiatric: Alert, Oriented x3 Hospital Course Patient was admitted to the hospital secondary to hyponatremia and debility from COVID-19. Her sodium improved. She was treated with Decadron for her COVID. She remained on 2 to 4 L near her baseline oxygen requirement throughout her hospital stay. Due to her metastatic cancer she elected to discharge home with hospice and enrolled in hospice can pass this upon discharge. Labs (last 24 hrs) Microbiology 01/03/22 MRSA Screen - Final, Complete MRSA not isolated Patient resulted labs reviewed. Imaging: Reviewed Imaging Report Discussion & Recommendations Discharge Planning: >30 minutes discharge planning Discharge Home Medications: Active Scripts Active Prednisone 10 Mg Tab.ds.pk 10 Mg PO DAILY Take 6 tabs(60mg)daily,decrease by 1 tab(10mg)every other day. Mirtazapine 15 Mg Tab.rapdis 15 Mg PO HS 30 Days Sodium Chloride 1 Gram Tab 2 Gm PO BID 30 Days Reported Flintstones with Iron Tab Chew (Pediatric Multivit No.203/Iron) 18 Mg Iron Tab.chew 1 Ea PO DAILY Nac (Acetylcysteine) 500 Mg Capsule 500 Mg PO BID Colace (Docusate Sodium) 100 Mg Capsule 100 Mg PO DAILY PRN Rosalia Allergy (Fexofenadine HCl) 180 Mg Tablet 180 Mg PO DAILY PRN Lisinopril 10 Mg Tablet 10 Mg PO DAILY Hydrocodone-Acetamin 5-325 mg (Hydrocodone/Acetaminophen) 5 Mg-325 Mg Tablet 1 Tab PO QID PRN Breztri Aerosphere Inhaler (Budesonide/Glycopyr/Formoterol) 160 Mcg-9 Mcg-4.8 Mcg/Actuation Hfa.aer.ad 2 Puff IH Q12H Euthyrox (Levothyroxine Sodium) 100 Mcg Tablet 100 Mcg PO DAILY Prochlorperazine Maleate 10 Mg Tablet 10 Mg PO Q6H PRN Ventolin Hfa (Albuterol Sulfate) 90 Mcg Hfa.aer.ad 2 Puff Q4H PRN Daliresp (Roflumilast) 500 Mcg Tablet 500 Mcg PO DAILY Calcitriol 0.25 Mcg Capsule 0.25 Mcg PO MO,FR Vitamin B Complex 1 Each Tablet 1 Each PO DAILY Instructions to patient/family Please see electronic discharge instructions given to patient. CLARISSA MCNEIL MD Jan 09, 2022 09:53
--- NOTE | 2022-01-09 10:32 | Physical Therapy Progress Note ---
Therapy Progress Note PT to dismiss patient from services at this time secondary patient dismissing to home on hospice. ARTURO RAMIREZ PT Jan 09, 2022 10:32
[2022-01-09 12:22] VITALS: BP 164/97
[2022-01-09 15:43] VITALS: BP 149/89
[2022-01-09] MEDS: ENOXAPARIN 40 MG/0.4 ML (LOVENOX) SYR SC SCH (18:07)
[2022-01-09] MEDS: RT-ALBUTEROL HFA 8.5 GM INHALER IH PRN ×2 (19:28→23:30)
[2022-01-09 20:28] VITALS: BP 133/71
[2022-01-09 21:00] VITALS: BP 133/71
[2022-01-09] MEDS: MIRTAZAPINE 15 MG (REMERON) TAB PO SCH ×2 (21:18→21:23)
[2022-01-09] MEDS: MELATONIN 3 MG TABLET PO PRN (21:18)
[2022-01-10 00:21] VITALS: BP 131/77
[2022-01-10] MEDS: HYDROcodone/APAP 5 MG/325 MG (LORTAB) TAB PO PRN ×2 (01:53→06:05)
[2022-01-10] MEDS: RT-ALBUTEROL HFA 8.5 GM INHALER IH SCH ×4 (03:47→08:56)
[2022-01-10 04:17] VITALS: BP 152/79
[2022-01-10] MEDS: LEVOTHYROXINE 100 MCG (LEVOTHROID) TAB PO SCH (05:18)
[2022-01-10] MEDS: predniSONE 20 MG TAB PO SCH (06:05)
[2022-01-10 07:25] VITALS: BP 137/79
[2022-01-10] MEDS: SODIUM CHLORIDE 1 GM TABLET PO SCH (08:15)
[2022-01-10] MEDS: DOCUSATE SODIUM 100 MG (COLACE) CAP PO SCH (08:15)
[2022-01-10] MEDS: SENNOSIDES 8.6 MG (SENOKOT) TAB PO SCH (08:16)
[2022-01-10 10:55] VITALS: BP 137/79
== END 2022-01-10 10:55 | disposition hospice, home (50) | DRG 177 ==
LOC: EDUNIT# 13:14 → ER 13:15 → ICU 15:12 → 4TH 01-04 20:34
PROVIDERS: ADMIT Internal Medicine; ATTEND Internal Medicine
DX: U07.1 COVID-19 (principal); E43 Unspecified severe protein-calorie malnutrition; J96.21 Acute and chronic respiratory failure with hypoxia; E87.1 Hypo-osmolality and hyponatremia; J44.1 Chronic obstructive pulmonary disease with (acute) exacerbation; Z68.1 Body mass index [BMI] 19.9 or less, adult; C79.51 Secondary malignant neoplasm of bone; C78.02 Secondary malignant neoplasm of left lung; C78.01 Secondary malignant neoplasm of right lung; Z66 Do not resuscitate; E87.5 Hyperkalemia; D64.9 Anemia, unspecified; I10 Essential (primary) hypertension; E03.9 Hypothyroidism, unspecified; Z99.81 Dependence on supplemental oxygen; Z87.891 Personal history of nicotine dependence; Z85.528 Personal history of other malignant neoplasm of kidney; Z90.5 Acquired absence of kidney
CPT/HCPCS: 36415; 71045; 80048; 80053; 81000; 83690; 83735; 83880; 83930; 83935; 84145; 84443; 84484; 85007; 85025; 85027; 85379; 85610; 85730; 86850; 86900; 86901; 86920; 87081; 87636; 93005; 93041; 94640; 94664; 94760